=== PATIENT | female | born 1950 | race Caucasian/White ===

== ENCOUNTER → 2016-12-04 | Outpatient (CLI) | payer MEDICARE, OTHER ==
[2016-12-04 17:22] LABS: Basophils % (A) 0 %; CH 30.4; CHCM 32.1; Eosinophils # (A) 0.2 k/uL (0-0.7); Eosinophils % (A) 3 %; HCT 39.1 % (34.0-46.0); HDW 2.33; HGB 12.7 gm/dL (11.4-16.0); Luc # (Auto) 0.12; Luc % (Auto) 2; Lymphocytes # (A) 1.3 k/uL (1.0-4.8); Lymphocytes % (A) 26 %; MCH 30.9 pg (25.0-35.0); MCHC 32.4 g/dL (31.0-37.0); MCV 95.3 fL (80.0-100.0); Monocytes # (A) 0.5 k/uL (0-1.0); Monocytes % (A) 9 %; Neutrophils # (A) 3.1 k/uL (1.3-7.7); Neutrophils % (A) 60 %; RBC 4.11 m/uL (3.80-5.40); RDW 13.2 % (11.5-15.5); WBC 5.2 k/uL (3.8-10.6); WBC (Perox) 5.79
[2016-12-04 17:49] LABS: Bilirubin, Delta 0.2 mg/dL (0.0-0.2); Total Bilirubin 0.4 mg/dL (0.2-1.3)
[2016-12-04 17:50] LABS: Hemoglobin A1C 5.9 % (4.2-6.1)
== END ==
LOC: LABWHC1 17:07
PROVIDERS: ATTEND Psychiatry & Neurology Psychiatry
DX: F71 Moderate intellectual disabilities (principal); F84.0 Autistic disorder
CPT/HCPCS: 36415; 80076; 82607; 82746; 83036; 84443; 85025

== ENCOUNTER → 2017-02-15 | Outpatient (CLI) | payer MEDICARE, OTHER ==
[2017-02-15 17:11] LABS: Basophils % (A) 0 %; CH 29.9; CHCM 32.2; Eosinophils # (A) 0.1 k/uL (0-0.7); Eosinophils % (A) 2 %; HCT 38.6 % (34.0-46.0); HDW 2.49; HGB 13.2 gm/dL (11.4-16.0); Luc # (Auto) 0.14; Luc % (Auto) 2; Lymphocytes # (A) 1.9 k/uL (1.0-4.8); Lymphocytes % (A) 34 %; MCH 31.8 pg (25.0-35.0); MCHC 34.1 g/dL (31.0-37.0); MCV 93.1 fL (80.0-100.0); Monocytes # (A) 0.5 k/uL (0-1.0); Monocytes % (A) 8 %; Neutrophils # (A) 3.1 k/uL (1.3-7.7); Neutrophils % (A) 54 %; RBC 4.14 m/uL (3.80-5.40); RDW 13.3 % (11.5-15.5); WBC 5.7 k/uL (3.8-10.6); WBC (Perox) 6.06
[2017-02-15 17:44] LABS: Bilirubin, Delta 0.1 mg/dL (0.0-0.2); Total Bilirubin 0.3 mg/dL (0.2-1.3); Total Protein 6.8 g/dL (6.3-8.2)
[2017-02-15 22:14] LABS: Hemoglobin A1C 5.7 % (4.2-6.1)
== END | disposition home or self-care (01) ==
LOC: LABWHC1 16:38
PROVIDERS: ATTEND Psychiatry & Neurology Psychiatry
DX: G40.909 Epilepsy, unspecified, not intractable, without status epilepticus (principal); T50.905A Adverse effect of unspecified drugs, medicaments and biological substances, initial encounter
CPT/HCPCS: 36415; 80076; 80164; 82607; 82746; 83036; 84443; 85025

== ENCOUNTER → 2018-02-17 | Outpatient (CLI) | payer MEDICARE, OTHER ==
[2018-02-17 16:48] LABS: Basophils % (A) 0 %; Eosinophils # (A) 0.1 k/uL (0-0.7); Eosinophils % (A) 2 %; HGB 12.8 gm/dL (11.4-16.0); Lymphocytes # (A) 1.9 k/uL (1.0-4.8); Lymphocytes % (A) 36 %; MCH 30.6 pg (25.0-35.0); MCHC 32.7 g/dL (31.0-37.0); MCV 93.5 fL (80.0-100.0); Mean Platelet Volume 7.1; Monocytes # (A) 0.5 k/uL (0-1.0); Monocytes % (A) 9 %; Neutrophils # (A) 2.7 k/uL (1.3-7.7); Neutrophils % (A) 51 %; Platelet Count 149 k/uL (150-450); RBC 4.17 m/uL (3.80-5.40); RDW 13.7 % (11.5-15.5); WBC 5.2 k/uL (3.8-10.6)
[2018-02-17 17:07] LABS: Albumin 3.9 g/dL (3.5-5.0); Bilirubin, Delta 0.2 mg/dL (0.0-0.2); Potassium 4.4 mmol/L (3.5-5.1); Total Bilirubin 0.2 mg/dL (0.2-1.3); Total Protein 6.6 g/dL (6.3-8.2)
[2018-02-17 17:12] LABS: Valproic Acid (Depakene) 62.6 ug/mL
[2018-02-18 02:13] LABS: Hemoglobin A1C 5.9 % (4.0-6.0)
== END | disposition home or self-care (01) ==
LOC: LABWHC1 16:16
PROVIDERS: ATTEND Psychiatry & Neurology Psychiatry
DX: Z51.81 Encounter for therapeutic drug level monitoring (principal); Z79.899 Other long term (current) drug therapy
CPT/HCPCS: 36415; 80051; 80076; 80164; 83036; 84443; 85025

== ENCOUNTER 2018-10-18 12:19 | Emergency (ER) | payer MEDICARE, OTHER ==
[2018-10-18 12:28] VITALS: RESP 18
[2018-10-18] MEDS ORDERED: SODIUM CHLORIDE 0.9% 1,000 ML IV STA (13:10)
--- NOTE | 2018-10-18 13:36 | ED ---
General Adult HPI - General Chief complaint: Recheck/Abnormal Lab/Rx Stated complaint: Weakness/bleeding Time Seen by Provider: 10/18/18 12:55 Source: patient, RN notes reviewed Mode of arrival: ambulatory Limitations: no limitations - History of Present Illness Initial comments: 67-year-old female presents emergency department for evaluation of fatigue. Patient has flulike symptoms include that she does have influenza. She has had a cough, runny nose and suspected fever. Patient denies any chest pain or shortness of breath. Denies any headache or dizziness. There also states that she had an episode of blood in her brief those mixed with urine. Denies any vaginal bleeding or rectal bleeding Patient symptoms happened over the weekend and I did contact PCP and which she'll follow-up appointment. Patient had no recurrent episodes denies any diarrhea or constipation. Patient is her normal baseline in which she does have underlying developmental delay - Related Data Home Medications Medication Instructions Recorded Confirmed FLUoxetine HCL [PROzac] 20 mg PO QAM 01/28/14 10/18/18 Furosemide [Lasix] 20 mg PO DAILY PRN 01/28/14 10/18/18 Alendronate Sodium [Fosamax] 70 mg PO Q7D 08/26/15 10/18/18 Mirabegron [Myrbetriq] 50 mg PO QAM 08/26/15 10/18/18 Divalproex [Depakote] 500 mg PO BID 09/04/15 10/18/18 Atorvastatin [Lipitor] 40 mg PO HS 10/14/15 10/18/18 Aspirin 325 mg PO DAILY 10/18/18 10/18/18 Ergocalciferol [Vitamin D2] 50,000 unit PO Q7D 10/18/18 10/18/18 Lisinopril [Zestril] 10 mg PO DAILY 10/18/18 10/18/18 Montelukast Sodium [Singulair] 10 mg PO HS 10/18/18 10/18/18 Vitafusion Fiber 5 mg PO DAILY 10/18/18 10/18/18 Previous Rx's Medication Instructions Recorded Cephalexin [Keflex] 500 mg PO Q8HR #21 cap 10/18/18 Allergies Allergy/AdvReac Type Severity Reaction Status Date / Time No Known Allergies Allergy Verified 10/18/18 13:28 Review of Systems ROS Statement: Those systems with pertinent positive or pertinent negative responses have been documented in the HPI. ROS Other: All systems not noted in ROS Statement are negative. Past Medical History Past Medical History: CVA/TIA, GERD/Reflux, Seizure Disorder Additional Past Medical History / Comment(s): RECENT ABD PAIN (CT ATTEMPTED, BUT PATIENT WOULD NOT DRINK CONTRAST). MENTALLY DELAYED, DOES NOT COMPREHEND ALTHOUGH SHE ACKNOWLEDGES (PER CAREGIVER). Fluid on the brain in 2007. "Staring seizures". Insomnia, Osteoporosis. INCONTINENT (USES DEPENDS). History of Any Multi-Drug Resistant Organisms: None Reported Past Surgical History: Cholecystectomy Past Anesthesia/Blood Transfusion Reactions: No Reported Reaction Additional Past Anesthesia/Blood Transfusion Reaction / Comment(s): HAS NEVER HAD SURGERY. Past Psychological History: No Psychological Hx Reported Smoking Status: Unknown if ever smoked Past Alcohol Use History: None Reported Past Drug Use History: None Reported - Past Family History Father Family Medical History: Unable to Obtain Mother Family Medical History: Unable to Obtain General Exam Limitations: no limitations General appearance: alert, in no apparent distress Head exam: Present: atraumatic, normocephalic, normal inspection Eye exam: Present: normal appearance, PERRL, EOMI. Absent: scleral icterus, conjunctival injection, periorbital swelling ENT exam: Present: normal exam, normal oropharynx, mucous membranes moist Neck exam: Present: normal inspection. Absent: tenderness, meningismus, lymphadenopathy Respiratory exam: Present: normal lung sounds bilaterally. Absent: respiratory distress, wheezes, rales, rhonchi, stridor Cardiovascular Exam: Present: regular rate, normal rhythm, normal heart sounds. Absent: systolic murmur, diastolic murmur, rubs, gallop, clicks GI/Abdominal exam: Present: soft, normal bowel sounds. Absent: distended, tenderness, guarding, rebound, rigid Neurological exam: Present: alert, CN II-XII intact Skin exam: Present: warm, dry, intact, normal color. Absent: rash Course Vital Signs 10/18/18 12:25 Temperature 98 F Pulse Rate 104 H Respiratory 18 Rate Blood Pressure 154/91 O2 Sat by Pulse 98 Oximetry Medical Decision Making - Medical Decision Making 67-year-old female present for possible influenza, episode of blood in her brief. Patient does have evidence of nitrite positive, hematuria, weight cells in her urine though very minimal. Patient generally culture will be placed on antibiotics. Patient is out of range for Tamiflu. Patient chest x-ray is unremarkable. Patient is stable for discharge return parameters were discussed. - Lab Data Result diagrams: 10/18/18 14:10 10/18/18 14:10 Lab Results 10/18/18 10/18/18 10/18/18 Range/Units 14:10 14:10 14:10 WBC 5.3 (3.8-10.6) k/uL RBC 3.81 (3.80-5.40) m/uL Hgb 11.7 (11.4-16.0) gm/dL Hct 35.5 (34.0-46.0) % MCV 93.0 (80.0-100.0) fL MCH 30.7 (25.0-35.0) pg MCHC 32.9 (31.0-37.0) g/dL RDW 13.7 (11.5-15.5) % Plt Count 106 L (150-450) k/uL Neutrophils % 71 % Lymphocytes % 19 % Monocytes % 8 % Eosinophils % 0 % Basophils % 0 % Neutrophils # 3.8 (1.3-7.7) k/uL Lymphocytes # 1.0 (1.0-4.8) k/uL Monocytes # 0.5 (0-1.0) k/uL Eosinophils # 0.0 (0-0.7) k/uL Basophils # 0.0 (0-0.2) k/uL PT (9.0-12.0) sec INR (<1.2) APTT (22.0-30.0) sec Sodium 137 (137-145) mmol/L Potassium 4.0 (3.5-5.1) mmol/L Chloride 101 (98-107) mmol/L Carbon Dioxide 31 H (22-30) mmol/L Anion Gap 5 mmol/L BUN 25 H (7-17) mg/dL Creatinine 0.89 (0.52-1.04) mg/dL Est GFR (CKD-EPI)AfAm 78 (>60 ml/min/1.73 sqM) Est GFR (CKD-EPI)NonAf 67 (>60 ml/min/1.73 sqM) Glucose 127 H (74-99) mg/dL Plasma Lactic Acid Ojel 1.1 (0.7-2.0) mmol/L Calcium 9.2 (8.4-10.2) mg/dL Magnesium 1.7 (1.6-2.3) mg/dL Total Bilirubin 0.3 (0.2-1.3) mg/dL AST 24 (14-36) U/L ALT 28 (9-52) U/L Alkaline Phosphatase 61 (38-126) U/L Total Protein 5.9 L (6.3-8.2) g/dL Albumin 3.2 L (3.5-5.0) g/dL Urine Color Urine Appearance (Clear) Urine pH (5.0-8.0) Ur Specific [place] (1.001-1.035) Urine Protein (Negative) Urine Glucose (UA) (Negative) Urine Ketones (Negative) Urine Blood (Negative) Urine Nitrite (Negative) Urine Bilirubin (Negative) Urine Urobilinogen (<2.0) mg/dL Ur Leukocyte Esterase (Negative) Urine RBC (0-5) /hpf Ur Squamous Epith Cells (0-4) /hpf Urine Bacteria (None) /hpf Hyaline Casts (0-2) /lpf Urine Mucus (None) /hpf Influenza Type A RNA (Not Detectd) Influenza Type B (PCR) (Not Detectd) 10/18/18 10/18/18 10/18/18 Range/Units 14:10 14:10 15:21 WBC (3.8-10.6) k/uL RBC (3.80-5.40) m/uL Hgb (11.4-16.0) gm/dL Hct (34.0-46.0) % MCV (80.0-100.0) fL MCH (25.0-35.0) pg MCHC (31.0-37.0) g/dL RDW (11.5-15.5) % Plt Count (150-450) k/uL Neutrophils % % Lymphocytes % % Monocytes % % Eosinophils % % Basophils % % Neutrophils # (1.3-7.7) k/uL Lymphocytes # (1.0-4.8) k/uL Monocytes # (0-1.0) k/uL Eosinophils # (0-0.7) k/uL Basophils # (0-0.2) k/uL PT 10.7 (9.0-12.0) sec INR 1.0 (<1.2) APTT 30.2 H (22.0-30.0) sec Sodium (137-145) mmol/L Potassium (3.5-5.1) mmol/L Chloride (98-107) mmol/L Carbon Dioxide (22-30) mmol/L Anion Gap mmol/L BUN (7-17) mg/dL Creatinine (0.52-1.04) mg/dL Est GFR (CKD-EPI)AfAm (>60 ml/min/1.73 sqM) Est GFR (CKD-EPI)NonAf (>60 ml/min/1.73 sqM) Glucose (74-99) mg/dL Plasma Lactic Acid Joel (0.7-2.0) mmol/L Calcium (8.4-10.2) mg/dL Magnesium (1.6-2.3) mg/dL Total Bilirubin (0.2-1.3) mg/dL AST (14-36) U/L ALT (9-52) U/L Alkaline Phosphatase (38-126) U/L Total Protein (6.3-8.2) g/dL Albumin (3.5-5.0) g/dL Urine Color Light Yellow Urine Appearance Clear (Clear) Urine pH 6.0 (5.0-8.0) Ur Specific [place] 1.008 (1.001-1.035) Urine Protein Negative (Negative) Urine Glucose (UA) Negative (Negative) Urine Ketones Negative (Negative) Urine Blood Negative (Negative) Urine Nitrite Positive H (Negative) Urine Bilirubin Negative (Negative) Urine Urobilinogen <2.0 (<2.0) mg/dL Ur Leukocyte Esterase Large H (Negative) Urine RBC 1 (0-5) /hpf Ur Squamous Epith Cells <1 (0-4) /hpf Urine Bacteria Many H (None) /hpf Hyaline Casts 1 (0-2) /lpf Urine Mucus Rare H (None) /hpf Influenza Type A RNA Detected H (Not Detectd) Influenza Type B (PCR) Not Detected (Not Detectd) Disposition Clinical Impression: Influenza, UTI (urinary tract infection) Disposition: HOME SELF-CARE Condition: Stable Instructions (If sedation given, give patient instructions): Influenza (ED) Additional Instructions: Please return to the Emergency Department if symptoms worsen or any other concerns. Prescriptions: Cephalexin [Keflex] 500 mg PO Q8HR #21 cap Is patient prescribed a controlled substance at d/c from ED?: No Referrals: Nnamdi Toney DO [Primary Care Provider] - 1-2 days Time of Disposition: 15:54
--- NOTE | 2018-10-18 14:03 | XR ---
EXAMINATION TYPE: XR chest 2V DATE OF EXAM: 10/18/2018 COMPARISON: Prior chest x-ray 09/04/2015 HISTORY: Fever and cough TECHNIQUE: Frontal and lateral views of the chest are obtained. FINDINGS: Lung volumes are low. Patchy basilar atelectasis is noted. There is no focal air space [place], pleural effusion, or pneumothorax seen. The cardiac silhouette size is stable. The osseous s tructures are intact. Atheromatous changes are noted within the aorta. IMPRESSION: Correlate for basilar atelectasis versus pneumonia. Follow-up suggested.
[2018-10-18 14:31] LABS: Basophils % (A) 0 %; Eosinophils % (A) 0 %; HCT 35.5 % (34.0-46.0); HGB 11.7 gm/dL (11.4-16.0); Lymphocytes % (A) 19 %; MCH 30.7 pg (25.0-35.0); MCHC 32.9 g/dL (31.0-37.0); Mean Platelet Volume 7.9; Monocytes # (A) 0.5 k/uL (0-1.0); Monocytes % (A) 8 %; Neutrophils # (A) 3.8 k/uL (1.3-7.7); Neutrophils % (A) 71 %; Platelet Count 106 k/uL (150-450); RBC 3.81 m/uL (3.80-5.40); RDW 13.7 % (11.5-15.5); WBC 5.3 k/uL (3.8-10.6)
[2018-10-18 14:35] LABS: Albumin 3.2 g/dL (3.5-5.0); Calcium 9.2 mg/dL (8.4-10.2); Magnesium 1.7 mg/dL (1.6-2.3); Partial Thromboplastin Time 30.2 sec (22.0-30.0); Prothrombin Time 10.7 sec (9.0-12.0); Total Bilirubin 0.3 mg/dL (0.2-1.3); Total Protein 5.9 g/dL (6.3-8.2)
[2018-10-18 15:40] LABS: Appearance,Urine Clear (Clear); Bacteria,Urine Many /hpf; Bilirubin,Urine Negative (Negative); Blood,Urine Negative (Negative); Color,Urine Light Yellow; Glucose,Urine (UA) Negative (Negative); Hyaline Casts,Urine 1 /lpf (0-2); Ketones,Urine Negative (Negative); Leukocyte Esterase,Urine Large (Negative); Mucus,Urine Rare /hpf; Nitrite,Urine Positive (Negative); Protein,Urine Negative (Negative); RBC,Urine 1 /hpf (0-5); Specific Gravity,Urine 1.008 (1.001-1.035); Squamous Epithelial Cell,Urine <1 /hpf (0-4); Urobilinogen,Urine <2.0 mg/dL (<2.0)
[2018-10-18 16:08] VITALS: BP 130/73; PULSE 94; TEMP 98.7
== END 2018-10-18 16:07 | disposition home or self-care (01) ==
LOC: EC 12:19
DX: J10.1 Influenza due to other identified influenza virus with other respiratory manifestations (principal); N39.0 Urinary tract infection, site not specified; G40.909 Epilepsy, unspecified, not intractable, without status epilepticus; Z86.73 Personal history of transient ischemic attack (TIA), and cerebral infarction without residual deficits; Z79.82 Long term (current) use of aspirin; Z79.899 Other long term (current) drug therapy
CPT/HCPCS: 36415; 71046; 80053; 81001; 83605; 83735; 85025; 85610; 85730; 87086; 87502; 96360; 96361; 99284

== ENCOUNTER 2019-04-29 08:37 | Outpatient (CLI) | payer MEDICARE, OTHER | END 2019-04-29 10:24 | disposition home or self-care (01) | LOC: LABWHC1 08:37 | PROVIDERS: ATTEND Psychiatry & Neurology Psychiatry | DX: Z53.9 Procedure and treatment not carried out, unspecified reason (principal) ==

== ENCOUNTER → 2019-06-08 | Outpatient (CLI) | payer MEDICARE, OTHER ==
--- NOTE | 2019-06-08 23:01 | CONS ---
CONSULTATION DATE OF SERVICE: 06/08/2019 This patient is a 68-year-old lady who has been evaluated in the sleep center for possible obstructive sleep apnea-hypopnea syndrome. HISTORY OF PRESENT ILLNESS/SLEEP-WAKE EVALUATION: Patient's sleep schedule on weekdays is usually from around 8 p.m. until 6 a.m.; on weekends from around 8 p.m. until 7:30 a.m. Usually no problems with falling asleep. No TV in bedroom. She sleeps on the back position. She snores and she has episodes of nocturia 2 times at night. No history of hypnagogic hallucinations, sleep paralysis or cataplexy. In the morning the patient wakes up tired, has difficulties paying attention, has problems with memory and concentration. [place] Sleepiness Scale is 3. Usually she does not take any naps during the day. History was taken with the help of caregiver. PAST MEDICAL HISTORY: Past medical history is positive for: 1. Hypertension. 2. Hyperlipidemia. 3. Obsessive-compulsive disorder. 4. History of bowel incontinence. MEDICATIONS: 1. Furosemide. 2. Robitussin. 3. Alendronate. 4. Fluoxetine. 5. Divalproex. 6. Atorvastatin. 7. Lisinopril. 8. Aspirin. 9. Montelukast. SOCIAL HISTORY: Negative for smoking or using alcohol. PAST SURGICAL HISTORY: None. FAMILY HISTORY: Heart problems. REVIEW OF SYSTEMS: Awakenings from sleep, mood problems, swelling of the legs. PHYSICAL EXAMINATION: GENERAL: A pleasant lady without distress. VITAL SIGNS: BP 123/79, HR 88, RR 14, height 5 feet 4-1/2 inches, weight 164.4, temperature 98.6, oxygen saturation on room air 92%, body mass index 27.7. HEENT: PERRLA, EOMI. Evaluation of oropharynx showed tongue protrudes midline. Extremely low position of soft palate. Significant retrognathia, about 7 mm. NECK: Supple. No JVD. Thyroid is not palpable. Neck measures 14-1/2 inches in circumference. LUNGS: Clear to percussion and to auscultation. Good air exchange. No wheezing or rhonchi. HEART: S1, S2 regular. No murmurs, gallops or rubs. ABDOMEN: Soft and nontender. Bowel sounds are present. No organomegaly. EXTREMITIES: No clubbing or cyanosis. LITHOGRAPHIC STRIPPER: Awake, alert, and oriented X3. Cranial nerves 2 to 7 intact. There is no fasciculation or atrophy. noted. No focal deficits observed. Tremor. Finger-nose probe for Parkinson's disease is negative. IMPRESSION: 1. Snoring, extremely low position of soft palate, nocturia, significant retrognathia, about 7 mm; obstructive sleep apnea-hypopnea syndrome. 2. History of obsessive-compulsive disorder. 3. Forgetfulness. 4. Hypertension. 5. Hyperlipidemia. 6. History of bowel incontinence. 7. Tremor, most probably benign. PLAN: 1. Polysomnography for evaluation of patient's breathing during sleep. 2. CPAP/BiPAP titration if sleep study confirms obstructive sleep apnea-hypopnea syndrome. 3. Preferable position during sleep on the side. 4. No driving if patient feels any sleepiness. 5. I will see patient for follow up visit to explain results of testing and following plan. Thank you very much for referring this patient for consultation. Sincerely, Shaun Alberts MD, PhD, FAASM Diplomat of [place] [employer] [place] [employer] Atm Technician of [facility] [place] MMODL / IJN: [id number] /
== END ==
LOC: SLEEP 16:33
PROVIDERS: ATTEND Internal Medicine
DX: G47.33 Obstructive sleep apnea (adult) (pediatric) (principal); I10 Essential (primary) hypertension; E78.5 Hyperlipidemia, unspecified; R25.1 Tremor, unspecified; Z79.899 Other long term (current) drug therapy; Z87.19 Personal history of other diseases of the digestive system; Z79.82 Long term (current) use of aspirin

== ENCOUNTER → 2019-09-02 | Outpatient (CLI) | payer MEDICARE, OTHER ==
[2019-09-02 16:43] LABS: Valproic Acid (Depakene) 78.5 ug/mL (50.0-100.0)
[2019-09-02 17:25] LABS: ALT 13 U/L (8-44); AST 19 U/L (13-35); Albumin/Globulin Ratio 1.95 (1.60-3.17); Alkaline Phosphatase 77 U/L (41-126); Bilirubin, Conjugated <0.20 mg/dL (0.20-0.40); Chol/HDL Ratio 2.09; Cholesterol 121 mg/dL (0-200); Globulin 2.1 g/dL (1.6-3.3); Glucose 102 mg/dL (70-110); LDL Cholesterol,Calculated 51.4 mg/dL (0.0-131.0); Total Bilirubin 0.3 mg/dL (0.3-1.2); Total Protein 6.2 g/dL (6.2-8.2)
== END | disposition home or self-care (01) ==
LOC: EEVIPCON 08:48 → LABWHC1 08:48
PROVIDERS: ATTEND Psychiatry & Neurology Psychiatry
DX: F71 Moderate intellectual disabilities (principal); F84.0 Autistic disorder; T50.905A Adverse effect of unspecified drugs, medicaments and biological substances, initial encounter; Z79.899 Other long term (current) drug therapy
CPT/HCPCS: 36415; 80061; 80076; 80164; 82947; 83036

== ENCOUNTER → 2020-07-26 | Outpatient (CLI) | payer MEDICARE, OTHER | END | disposition home or self-care (01) | LOC: LABWHC1 09:12 | PROVIDERS: ATTEND Psychiatry & Neurology Neurology | DX: G40.009 Localization-related (focal) (partial) idiopathic epilepsy and epileptic syndromes with seizures of localized onset, not intractable, without status epilepticus (principal) | CPT/HCPCS: 36415; 80164 ==

== ENCOUNTER → 2021-06-13 | Outpatient (CLI) | payer MEDICARE, OTHER | END | disposition home or self-care (01) | LOC: LABWHC1 11:04 | PROVIDERS: ATTEND Psychiatry & Neurology Psychiatry | DX: Z79.899 Other long term (current) drug therapy (principal) | CPT/HCPCS: 36415; 80164 ==

== ENCOUNTER 2025-02-14 14:13 | Observation (INO) | payer MEDICARE, OTHER ==
--- NOTE | 2025-02-14 15:08 | ED ---
Recheck HPI - General Chief Complaint: Recheck/Abnormal Lab/Rx Stated Complaint: Peg 2 issues Time Seen by Provider: 02/14/25 15:03 Source: patient, EMS, RN notes reviewed Mode of arrival: EMS Limitations: language barrier - History of Present Illness Initial Comments: 74 year old female sent from [facility] home for clogged PEG tube. Patient is nonverbal at baseline. Patient originally had a 20 Bulgarian PEG tube however it was replaced 2 weeks ago with a 16 Bulgarian. States they are having issues with the PEG tube becoming clogged and are requesting a larger PEG tube such as an 18 Bulgarian or 20 Bulgarian. - Related Data Home Medications Medication Instructions Recorded Confirmed FLUoxetine HCL [PROzac] 20 mg PO QAM 01/28/14 10/18/18 Furosemide [Lasix] 20 mg PO DAILY PRN 01/28/14 10/18/18 Alendronate Sodium [Fosamax] 70 mg PO Q7D 08/26/15 10/18/18 Mirabegron [Myrbetriq] 50 mg PO QAM 08/26/15 10/18/18 Divalproex [Depakote] 500 mg PO BID 09/04/15 10/18/18 Atorvastatin [Lipitor] 40 mg PO HS 10/14/15 10/18/18 Aspirin 325 mg PO DAILY 10/18/18 10/18/18 Ergocalciferol [Vitamin D2] 50,000 unit PO Q7D 10/18/18 10/18/18 Montelukast Sodium [Singulair] 10 mg PO HS 10/18/18 10/18/18 Vitafusion Fiber 5 mg PO DAILY 10/18/18 10/18/18 lisinopriL [Zestril] 10 mg PO DAILY 10/18/18 10/18/18 Previous Rx's Medication Instructions Recorded Cephalexin [Keflex] 500 mg PO Q8HR #21 cap 10/18/18 Allergies Allergy/AdvReac Type Severity Reaction Status Date / Time No Known Allergies Allergy Verified 02/14/25 14:21 Review of Systems ROS Statement: Those systems with pertinent positive or pertinent negative responses have been documented in the HPI. ROS Other: All systems not noted in ROS Statement are negative. Past Medical History Past Medical History: CVA/TIA, GERD/Reflux, Seizure Disorder Additional Past Medical History / Comment(s): RECENT ABD PAIN (CT ATTEMPTED, BUT PATIENT WOULD NOT DRINK CONTRAST). MENTALLY DELAYED, DOES NOT COMPREHEND ALTHOUGH SHE ACKNOWLEDGES (PER CAREGIVER). Fluid on the brain in 2006. "Staring seizures". Insomnia, Osteoporosis. INCONTINENT (USES DEPENDS). History of Any Multi-Drug Resistant Organisms: ESBL Date of last positivie culture/infection: 10/18/18 MDRO Source:: ESBL URINE Past Surgical History: Cholecystectomy Past Anesthesia/Blood Transfusion Reactions: No Reported Reaction Additional Past Anesthesia/Blood Transfusion Reaction / Comment(s): HAS NEVER HAD SURGERY. Past Psychological History: No Psychological Hx Reported Past Alcohol Use History: None Reported Past Drug Use History: None Reported - Past Family History Father Family Medical History: Unable to Obtain Mother Family Medical History: Unable to Obtain General Exam Limitations: language barrier General appearance: alert, in no apparent distress Head exam: Present: atraumatic, normocephalic, normal inspection GI/Abdominal exam: Present: soft, normal bowel sounds, other (peg tube in place). Absent: distended, tenderness, guarding, rebound, rigid Neurological exam: Present: alert Skin exam: Present: warm, dry, intact, normal color. Absent: rash Course Vital Signs 02/14/25 02/14/25 02/14/25 14:16 14:22 15:11 Temperature 97.9 F 98.1 F Pulse Rate 70 71 Respiratory 22 13 Rate Blood Pressure 116/64 114/59 O2 Sat by Pulse 97 Oximetry 02/14/25 17:06 Temperature 97.9 F Pulse Rate 74 Respiratory 22 Rate Blood Pressure 114/56 O2 Sat by Pulse 95 Oximetry Medical Decision Making - Medical Decision Making Was pt. sent in by a medical professional or institution (, PA, SENIOR AUDIT MANAGER, urgent care, hospital, or half-way...) When possible be specific @ -No Did you speak to anyone other than the patient for history (EMS, parent, family, police, friend...)? What history was obtained from this source @ -No Did you review nursing and triage notes (agree or disagree)? Why? @ -I reviewed and agree with nursing and triage notes Were old charts reviewed (outside hosp., previous admission, EMS record, old EKG, old radiological studies, urgent care reports/EKG's, half-way records)? Report findings @ -Yes, EMS Differential Diagnosis (chest pain, altered mental status, abdominal pain women, abdominal pain men, vaginal bleeding, weakness, fever, dyspnea, syncope, headache, dizziness, GI bleed, back pain, seizure, CVA, palpatations, mental health, musculoskeletal)? @ -Not applicable EKG interpreted by me (3pts min.). @ -None X-rays interpreted by me (1pt min.). @ -None done CT interpreted by me (1pt min.). @ -None done U/S interpreted by me (1pt. min.). @ -None done What testing was considered but not performed or refused? (CT, X-rays, U/S, labs)? Why? @ -None What meds were considered but not given or refused? Why? @ -None Did you discuss the management of the patient with other professionals (professionals i.e. , PA, SENIOR AUDIT MANAGER, lab, RT, psych nurse, psychosocial rehabilitation counselor, nail making machine setter, teacher, job placement officer, cyanide case hardener)? Give summary @ -I spoke with Dr. Ferreira on-call general surgeon who requests patient is admitted to medicine with him on consult. I then spoke with Dr. Cavanaugh who is agreeable to this plan Was smoking cessation discussed for >3mins.? @ -No Was critical care preformed (if so, how long)? @ -No Were there social determinants of health that impacted care today? How? (Homelessness, low income, unemployed, alcoholism, drug addiction, transportation, low edu. Level, literacy, decrease access to med. care, [facility], rehab)? @ -No Was there de-escalation of care discussed even if they declined (Discuss DNR or withdrawal of care, Hospice)? DNR status @ -No What co-morbidities impacted this encounter? (DM, HTN, Smoking, COPD, CAD, Cancer, CVA, ARF, Chemo, Hep., AIDS, mental health diagnosis, sleep apnea, morbid obesity)? @ -None Was patient admitted / discharged? Hospital course, mention meds given and route, prescriptions, significant lab abnormalities, going to OR and other pertinent info. @ -Admitted. 74-year-old female presenting for clogged PEG tube. PEG tube was removed. Attempted to replace PEG tube with 20 Bulgarian and was unsuccessful due to size. Then attempted to replace PEG tube with an 18 Bulgarian and was still unsuccessful due to size. Finally attempted to replace with a 16 Bulgarian and was unsuccessful by myself and my ED attending Dr. Stewart. Patient will be admitted to medicine with surgical consult per Dr. Ferreira request. Case was discussed with my ED attending Dr. Stewart. Undiagnosed new problem with uncertain prognosis? @ -No Drug Therapy requiring intensive monitoring for toxicity (Heparin, Nitro, Insulin, Cardizem)? @ -No Were any procedures done? @ -No Diagnosis/symptom? @ -PEG tube issue Acute, or Chronic, or Acute on Chronic? @ -Acute Uncomplicated (without systemic symptoms) or Complicated (systemic symptoms)? @ -Uncomplicated Side effects of treatment? @ -No Exacerbation, Progression, or Severe Exacerbation? @ -No Poses a threat to life or bodily function? How? (Chest pain, [place], [place], pneumonia, PE, COPD, DKA, ARF, appy, cholecystitis, CVA, Diverticulitis, Homicidal, Suicidal, threat to staff... and all critical care pts) @ -Possibly Disposition Clinical Impression: PEG tube malfunction Disposition: ADMITTED IP TO THIS HOSP Time of Disposition: 17:13
[2025-02-14] MEDS ORDERED: ONDANSETRON 4 MG/2 ML VIAL IVP PRN (17:11)
[2025-02-14] MEDS ORDERED: NALOXONE 0.4 MG/ML 1 ML VIAL IV PRN (17:11)
[2025-02-14] MEDS ORDERED: ALBUTEROL NEBULIZED 2.5 MG/3 ML INHALATION PRN (20:39)
[2025-02-14] MEDS: PANTOPRAZOLE 40 MG/10 ML VIAL IVP SCH (21:54)
[2025-02-14] MEDS: cloNIDine 0.1 MG/24HR PATCH TRANSDERM STA (21:54)
[2025-02-14] MEDS: DIVALPROEX SPRINKLE 125 MG CAP.SPRINK PEG/G-TUBE SCH (22:18)
[2025-02-14] MEDS: PANTOPRAZOLE 40 MG TABLET PO SCH (22:18)
[2025-02-15] MEDS: VALPROATE SODIUM 250 MG in SODIUM CHLORIDE 0.9% 100 ML IVPB SCH (00:37)
--- NOTE | 2025-02-15 12:56 | XR ---
EXAMINATION TYPE: XR chest 2V DATE OF EXAM: 02/15/2025 12:40 PM COMPARISON: Chest radiographs from 10/18/2018 TECHNIQUE: XR chest 2V Frontal and lateral views of the chest. CLINICAL INDICATION:Female, 74 years old with history of peg tube in situ - new admit; FINDINGS: Lungs/Pleura: There is no evidence of pleural effusion, focal consolidation, or pneumothorax. Pulmonary vascularity: Unremarkable. Heart/mediastinum: Cardiomediastinal silhouette is unremarkable. Musculoskeletal: No acute osseous pathology. Other findings: Cholecystectomy clips in the right upper quadrant. IMPRESSION: No acute cardiopulmonary disease/process. [facility] Raphael Abrams, , 02/15/2025 12:54 PM
[2025-02-15] MEDS: IV FLUID CONTINUATION 1,000 ML IV ONE (14:53)
[2025-02-15] MEDS: IV FLUID CONTINUATION 500 ML IV ONE (14:53)
[2025-02-15] MEDS ORDERED: PROPOFOL 10 MG/ML 20 ML VIAL IV ONE (14:55)
[2025-02-15] MEDS ORDERED: LIDOCAINE 1% INJ 10MG/ML (20 ML MDV) ONE (14:55)
--- NOTE | 2025-02-15 15:12 | P.GSCN ---
History of Present Illness Consult date: 02/15/25 Reason for Consult: PEG tube malfunction History of present illness: 74-year-old female here for PEG tube replacement. Patient apparently had her tube fall out recently. It was replaced with a smaller catheter. They were having difficulties with the tube getting clogged. In the ER they were unable to place a new appropriately sized catheter. She was admitted for that reason. Patient with history of previous CVA. Patient is nonverbal. Past Medical History Past Medical History: CVA/TIA, GERD/Reflux, Hypertension, Neurologic Disorder, Seizure Disorder Additional Past Medical History / Comment(s): RECENT ABD PAIN (CT ATTEMPTED, BUT PATIENT WOULD NOT DRINK CONTRAST). MENTALLY DELAYED, DOES NOT COMPREHEND ALTHOUGH SHE ACKNOWLEDGES (PER CAREGIVER). Fluid on the brain in 2006. "Staring seizures". Insomnia, Osteoporosis. INCONTINENT (USES DEPENDS). Parkinsons disease History of Any Multi-Drug Resistant Organisms: ESBL Year Discovered:: 10/18/18 MDRO Source:: ESBL URINE Past Surgical History: Cholecystectomy Additional Past Surgical History / Comment(s): PEG tube Past Anesthesia/Blood Transfusion Reactions: No Reported Reaction Additional Past Anesthesia/Blood Transfusion Reaction / Comm: HAS NEVER HAD SURGERY. Past Psychological History: No Psychological Hx Reported Additional Psychological History / Comment(s): MENTALLY DELAYED. Pt speaks in very soft voice sometimes difficult to understand, pt was able to write her name when asked and read items off dietary menu, HOWEVER DOES NOT ALWAYS COMPREHEND INSTRUCTIONS. RESIDES AT [address] [address]. [phone]. HAS NO FAMILY. OTHER HX: CHILDHOOD PSYCHOSIS, BI-POLAR, ASBERGER. Smoking Status: Unknown if ever smoked Past Alcohol Use History: None Reported Past Drug Use History: None Reported - Past Family History Father Family Medical History: Unable to Obtain Mother Family Medical History: Unable to Obtain Medications and Allergies Home Medications Medication Instructions Recorded Confirmed Type FLUoxetine HCL [PROzac] 20 mg PEG/G-TUBE DAILY 01/28/14 02/14/25 History Montelukast Sodium [Singulair] 10 mg PEG/G-TUBE HS 10/18/18 02/14/25 History Albuterol Inhaler [Ventolin Hfa 2 puff INHALATION RT-Q6H PRN 02/14/25 02/14/25 History Inhaler] Aspirin EC [Ecotrin Low Dose] 81 mg PEG/G-TUBE DAILY 02/14/25 02/14/25 History Atorvastatin [Lipitor] 20 mg PEG/G-TUBE HS 02/14/25 02/14/25 History Carbidopa-Levodopa 25-100 mg 1 tab PEG/G-TUBE TID 02/14/25 02/14/25 History [Sinemet 25-100] Divalproex Sprinkle [Depakote 500 mg PEG/G-TUBE BID 02/14/25 02/14/25 History Sprinkle] Donepezil [Aricept] 10 mg PEG/G-TUBE HS 02/14/25 02/14/25 History FLUoxetine HCL [PROzac] 10 mg PEG/G-TUBE DAILY 02/14/25 02/14/25 History Ketoconazole 2% Shampoo [Nizoral] 10 - 15 ml TOPICAL DIRECTED 02/14/25 02/14/25 History Lactose-Reduced Food [Ensure Plus] 237 ml PEG/G-TUBE TID 02/14/25 02/14/25 History Loperamide [Imodium] 2 mg PEG/G-TUBE QID PRN 02/14/25 02/14/25 History Magic Cup 1 can PO TID 02/14/25 02/14/25 History Metoprolol Tartrate [Lopressor] 25 mg PEG/G-TUBE BID 02/14/25 02/14/25 History Ondansetron [Zofran] 4 mg PEG/G-TUBE Q8HR PRN 02/14/25 02/14/25 History Pantoprazole [Protonix] 40 mg PEG/G-TUBE DAILY 02/14/25 02/14/25 History guaiFENesin SYRUP 100MG/5ML 200 mg PEG/G-TUBE Q4H PRN 02/14/25 02/14/25 History [Robitussin] Allergies Allergy/AdvReac Type Severity Reaction Status Date / Time No Known Allergies Allergy Verified 02/14/25 19:49 Surgical - Exam Vital Signs Temp Pulse Resp 97.9 F 70 22 02/14/25 14:16 02/14/25 14:16 02/14/25 14:16 Physical exam: General: Well-developed, well-nourished HEENT: Normocephalic, sclerae nonicteric Abdomen: Nontender, nondistended, PEG tube opening left upper quadrant Extremities: No edema Neuro: Alert and oriented Assessment and Plan (1) PEG tube malfunction Narrative/Plan: Will proceed with EGD and PEG tube replacement at this time Current Visit: Yes Status: Acute Code(s): K94.23 - GASTROSTOMY MALFUNCTION SNOMED Code(s): 893389134
--- NOTE | 2025-02-15 15:22 | P.PCN ---
Date of Procedure: 02/15/25 Procedure(s) Performed: PREOPERATIVE DIAGNOSIS: Malnutrition, dysphagia, PEG tube malfunction POSTOPERATIVE DIAGNOSIS: Same PROCEDURE: EGD with PEG tube placement SURGEON: Hanna EBL: Minimal ANESTHESIA: Sedation COMPLICATIONS: None OPERATIVE PROCEDURE: The patient was placed in the supine position on the en doscopy table. The patient was sedated per anesthesia that time. The Olympus gastroscope was inserted into the oropharynx and passed under direct visualization to the region of the duodenum. No obstruction was seen. The pylorus was widely patent. The stomach was carefully inspected. The stomach was fully insufflated with air. The abdominal wall was inspected. The patient had a small defect in the anterior aspect of the body of the stomach from the previous catheter placement. There was no catheter in place at this time. Initially I tried using a hemostat to see if we could dilate the tract. This was unsuccessful. For that reason a new kit was opened. We chose the same previous site. The light was seen shining through the abdominal wall in the left upper quadrant. This site was chosen for PEG tube placement. The area was prepped in the usual sterile fashion. This area was then localized with lidocaine. No air was evident when aspirating while advancing the localizing n eedle into the stomach until the stomach was reached. The Seldinger needle was advanced into the lumen of the stomach the wire was advanced. The wire was grasped with an endoscopic snare. The wire was pulled through the oropharynx. The catheter was then threaded over the guidewire and the guidewire and catheter were pulled anteriorly until the hub of the PEG tube catheter was seated against the anterior wall the stomach. The circular bolster was applied and tightened down. The endoscope was then readvanced into the stomach. There was no evidence of any bleeding and there was appropriate tightness on the bolster. The catheter was cut appropriately. The dual port feeding adapter was applied. DISPOSITION: Stable to recovery room
[2025-02-15 15:28] LABS: Basophils # (A) 0.02 X 10*3/uL (0.00-0.10); Basophils % (A) 0.2 %; Eosinophils # (A) 0.15 X 10*3/uL (0.04-0.35); Eosinophils % (A) 1.5 %; HCT 41.2 % (37.2-46.3); HGB 12.7 g/dL (12.0-15.0); Immature Grans, Automated 0.70 %; Lymphocytes # (A) 2.11 X 10*3/uL (0.90-5.00); Lymphocytes % (A) 20.9 %; MCH 28.7 pg (27.0-32.0); MCHC 30.8 g/dL (32.0-37.0); MCV 93.0 FL (80.0-97.0); Monocytes # (A) 0.80 X 10*3/uL (0.20-1.00); Monocytes % (A) 7.9 %; NRBC Per 100 WBC 0 X 10*3/uL (0.00-0.01); Neutrophils # (A) 6.95 X 10*3/uL (1.80-7.70); Neutrophils % (A) 68.8 %; Platelet Count 181 X 10*3/uL (140-440); RBC 4.43 X 10*6/uL (4.10-5.20); RDW 12.9 % (11.5-14.5); WBC 10.10 X 10*3/uL (4.50-10.00)
[2025-02-15 15:34] LABS: ALT 11 U/L (8-44); AST 15 U/L (13-35); Albumin 3.7 g/dL (3.8-4.9); Albumin/Globulin Ratio 1.85 Ratio (1.60-3.17); Alkaline Phosphatase 87 U/L (41-126); Anion Gap 7.80 mmol/L (4.00-12.00); BUN/Creat Ratio 18.00 Ratio (12.00-20.00); Blood Urea Nitrogen 16.2 mg/dL (9.0-27.0); Calcium 9.2 mg/dL (8.7-10.3); Carbon Dioxide 31.2 mmol/L (21.6-31.8); Chloride 102 mmol/L (96-109); Globulin 2.0 g/dL (1.6-3.3); Glucose 98 mg/dL (70-110); Potassium 4.6 mmol/L (3.5-5.5); Sodium 141 mmol/L (135-145); Total Protein 5.7 g/dL (6.2-8.2)
[2025-02-15 16:52] VITALS: RESP 16
--- NOTE | 2025-02-15 18:31 | P.HPIM ---
History of Present Illness Chief Complaint: PEG tube obstruction History of present illness: 74 yo female with a history of CVA, TIA, seizure disorder, hypertension and cognitive impairment, transferred from [facility] home with complaints of a blocked PG tube. Patient is non-verbal at baseline. It was reported by nursing staff from care facility that the patient's original PEG tube had fallen out and she had a temporary PEG tube placed as a result. In ER, patient laborary work reveals for wbc 10.10, Hg 12.7, Sodium 141, platelets 181, potassium 4.6. Patient transferred followed by medical team for chronic conditions. REVIEW OF SYSTEMS: As stated above in HPI. The rest of the 14-point review of systems is negative. PHYSICAL EXAMINATION: GENERAL: Patient is non verbal, not in acute distress HEENT: Pupils are round and equally reacting to light. EOMI. No scleral icterus. No conjunctival pallor. Normocephalic, atraumatic. CARDIOVASCULAR: S1 and S2 present. PULMONARY: exam limited, chest clear. ABDOMEN: PEG tube in place. no erythema, no discharge appreciated. EXTREMITIES: No cyanosis, clubbing, or pedal edema. SKIN: No rashes. Assessment and Plan #Seizure disorder - Switch IV Dapocone to Dapakene syrup through the PEG #History of CVA #History of TIA #Hypertension - Continue home medications. DVT ppx: SCD's GI ppx: protonix CODE STATUS:full Dictation was produced using [employer] dictation software. please excuse any gramm atical, word or spelling errors. Past Medical History Past Medical History: CVA/TIA, GERD/Reflux, Hypertension, Neurologic Disorder, Seizure Disorder Additional Past Medical History / Comment(s): RECENT ABD PAIN (CT ATTEMPTED, BUT PATIENT WOULD NOT DRINK CONTRAST). MENTALLY DELAYED, DOES NOT COMPREHEND ALTHOUGH SHE ACKNOWLEDGES (PER CAREGIVER). Fluid on the brain in 2006. "Staring seizures". Insomnia, Osteoporosis. INCONTINENT (USES DEPENDS). Parkinsons disease History of Any Multi-Drug Resistant Organisms: ESBL Date of last positivie culture/infection: 10/18/18 MDRO Source:: ESBL URINE Past Surgical History: Cholecystectomy Additional Past Surgical History / Comment(s): PEG tube Past Anesthesia/Blood Transfusion Reactions: No Reported Reaction Additional Past Anesthesia/Blood Transfusion Reaction / Comment(s): HAS NEVER HAD SURGERY. Past Psychological History: No Psychological Hx Reported Additional Psychological History / Comment(s): MENTALLY DELAYED. Pt speaks in very soft voice sometimes difficult to understand, pt was able to write her name when asked and read items off dietary menu, HOWEVER DOES NOT ALWAYS COMPREHEND INSTRUCTIONS. RESIDES AT [facility], [address] [place] [id number]. [phone]. HAS NO FAMILY. OTHER HX: CHILDHOOD PSYCHOSIS, BI-POLAR, ASBERGER. Smoking Status: Unknown if ever smoked Past Alcohol Use History: None Reported Past Drug Use History: None Reported - Past Family History Father Family Medical History: Unable to Obtain Mother Family Medical History: Unable to Obtain Medications and Allergies Home Medications Medication Instructions Recorded Confirmed Type FLUoxetine HCL [PROzac] 20 mg PEG/G-TUBE DAILY 01/28/14 02/14/25 History Montelukast Sodium [Singulair] 10 mg PEG/G-TUBE HS 10/18/18 02/14/25 History Albuterol Inhaler [Ventolin Hfa 2 puff INHALATION RT-Q6H PRN 02/14/25 02/14/25 History Inhaler] Aspirin EC [Ecotrin Low Dose] 81 mg PEG/G-TUBE DAILY 02/14/25 02/14/25 History Atorvastatin [Lipitor] 20 mg PEG/G-TUBE HS 02/14/25 02/14/25 History Carbidopa-Levodopa 25-100 mg 1 tab PEG/G-TUBE TID 02/14/25 02/14/25 History [Sinemet 25-100] Divalproex Sprinkle [Depakote 500 mg PEG/G-TUBE BID 02/14/25 02/14/25 History Sprinkle] Donepezil [Aricept] 10 mg PEG/G-TUBE HS 02/14/25 02/14/25 History FLUoxetine HCL [PROzac] 10 mg PEG/G-TUBE DAILY 02/14/25 02/14/25 History Ketoconazole 2% Shampoo [Nizoral] 10 - 15 ml TOPICAL DIRECTED 02/14/25 02/14/25 History Lactose-Reduced Food [Ensure Plus] 237 ml PEG/G-TUBE TID 02/14/25 02/14/25 History Loperamide [Imodium] 2 mg PEG/G-TUBE QID PRN 02/14/25 02/14/25 History Magic Cup 1 can PO TID 02/14/25 02/14/25 History Metoprolol Tartrate [Lopressor] 25 mg PEG/G-TUBE BID 02/14/25 02/14/25 History Ondansetron [Zofran] 4 mg PEG/G-TUBE Q8HR PRN 02/14/25 02/14/25 History Pantoprazole [Protonix] 40 mg PEG/G-TUBE DAILY 02/14/25 02/14/25 History guaiFENesin SYRUP 100MG/5ML 200 mg PEG/G-TUBE Q4H PRN 02/14/25 02/14/25 History [Robitussin] Allergies Allergy/AdvReac Type Severity Reaction Status Date / Time No Known Allergies Allergy Verified 02/14/25 19:49 Physical Exam Vitals: Vital Signs Temp Pulse Resp BP BP Pulse Ox 02/15/25 16:31 80 16 164/76 91 L 02/15/25 16:16 83 17 152/80 92 L 02/15/25 16:02 81 17 150/79 92 L 02/15/25 15:46 98.6 F 77 16 176/79 92 L 02/15/25 14:33 97.4 F L 87 18 123/67 94 L 02/15/25 07:05 98.2 F 63 16 164/76 98 02/15/25 02:57 97.4 F L 72 18 146/68 97 02/14/25 19:52 97.7 F 75 16 161/74 95 Intake and Output 02/15/25 02/15/25 02/15/25 06:59 14:59 22:59 Intake Total 200 0 Output Total 700 400 Balance -700 -200 0 Intake: IV 200 Oral 0 0 Output: Urine 700 400 Other: Voiding Method External Catheter External Catheter Results CBC & Chem 7: 02/15/25 09:05 02/15/25 09:05 Labs: Abnormal Lab Results - Last 24 Hours (Table) 02/15/25 02/15/25 Range/Units 09:05 09:05 WBC 10.10 H (4.50-10.00) X 10*3/uL MCHC 30.8 L (32.0-37.0) g/dL Immature Gran # 0.07 H (0.00-0.04) X 10*3/uL Total Bilirubin <0.2 L (0.3-1.2) mg/dL Total Protein 5.7 L (6.2-8.2) g/dL Albumin 3.7 L (3.8-4.9) g/dL
[2025-02-15] MEDS: VALPROIC ACID ORAL SOLN 250 MG/5 ML CUP PEG/G-TUBE SCH (20:41)
--- NOTE | 2025-02-16 13:12 | P.PN ---
Subjective Progress Note Date: 02/16/25 Principal diagnosis: PEG tube malfunction Patient doing well today. Tolerating tube feeds. No obvious discomforts. Objective - Vital Signs Vital signs: Vital Signs Temp 99.1 F 02/16/25 07:20 Pulse 105 H 02/16/25 07:20 Resp 16 02/16/25 07:20 BP 153/69 02/16/25 07:20 Pulse Ox 94 L 02/16/25 07:20 FiO2 Intake & Output 02/15/25 02/16/25 02/16/25 18:59 06:59 18:59 Intake Total 200 Output Total 400 700 Balance -200 -700 Intake: IV 200 Oral 0 Output: Urine 400 700 Other: Voiding Method External Catheter Diaper Incontinent - Exam Abdomen: Soft, nondistended, PEG tube in place - Labs CBC & Chem 7: 02/15/25 09:05 02/15/25 09:05 Labs: Abnormal Lab Results - Last 24 Hours (Table) 02/15/25 02/15/25 Range/Units 09:05 09:05 WBC 10.10 H (4.50-10.00) X 10*3/uL MCHC 30.8 L (32.0-37.0) g/dL Immature Gran # 0.07 H (0.00-0.04) X 10*3/uL Total Bilirubin <0.2 L (0.3-1.2) mg/dL Total Protein 5.7 L (6.2-8.2) g/dL Albumin 3.7 L (3.8-4.9) g/dL Assessment and Plan (1) PEG tube malfunction Narrative/Plan: Patient doing well at this time. Resume normal tube feeds. Will sign off. Please reconsult if needed. Current Visit: Yes Status: Acute Code(s): K94.23 - GASTROSTOMY MALFUNCTION SNOMED Code(s): 746365116
--- NOTE | 2025-02-16 13:22 | P.DS ---
Providers Date of admission: 02/14/25 17:02 Attending physician: David Cavanaugh MD Consults: 02/14/25 17:11 Consult Physician Urgent Consulting Provider: Alec Ferreira Reason/Comments: needs PEG tube replacement Do you want consulting provider notified?: Yes Primary care physician: Nnamdi Toney [facility] Course: Discharge Diagnosis: Blocked PEG tube Hospital Course: 74 yo female with a history of CVA, TIA, seizure disorder, hypertension and cognitive impairment, transferred from [facility] home with complaints of a blocked PEG tube. Patient is non-verbal at baseline. It was reported by nursing staff from care facility that the patient's original PEG tube had fallen out and she had a temporary PEG tube placed as a result. In ER, patient's lab work reveals wbc 10.10, Hg 12.7, Sodium 141, platelets 181, potassium 4.6. Patient transferred to be followed by medical team for chronic conditions. During the course of hospital stay, patient evaluated by general surgery for PEG tube replacement. The patient's PEG replaced appropriately with no complications from surgery. Currently the PEG is functional and patient receiving medications/nutrients with no difficulty. Patient was previously on Depakote sprinkles however this is now changed to Depakene syrup as the previous formulation results in the clogging of her PEG. At time of discharge patient hemodynamically stable and fit for discharge to [facility] facility. Patient seen and examined at bedside: 02/16/2025 Vital signs reviewed and stable: PHYSICAL EXAMINATION: GENERAL: Patient is non verbal, not in acute distress HEENT: Pupils are round and equally reacting to light. EOMI. No scleral icterus. No conjunctival pallor. Normocephalic, atraumatic. CARDIOVASCULAR: S1 and S2 present. PULMONARY: exam limited, chest clear. ABDOMEN: PEG tube in place. no erythema, no discharge appreciated. EXTREMITIES: No cyanosis, clubbing, or pedal edema. SKIN: No rashes. A total of greater than 30 minutes were spent preparing this complex discarge summary. Patient was discharged on 02/16/2025. Plan - Discharge Summary New Discharge Prescriptions: New Valproic Acid Oral Soln [Depakene Syrup] 250 mg PEG/G-TUBE Q6H 30 Days #600 ml Continue FLUoxetine HCL [PROzac] 20 mg PEG/G-TUBE DAILY Montelukast Sodium [Singulair] 10 mg PEG/G-TUBE HS Ondansetron [Zofran] 4 mg PEG/G-TUBE Q8HR PRN PRN Reason: Nausea guaiFENesin SYRUP 100MG/5ML [Robitussin] 200 mg PEG/G-TUBE Q4H PRN PRN Reason: Cough Albuterol Inhaler [Ventolin Hfa Inhaler] 2 puff INHALATION RT-Q6H PRN PRN Reason: Shortness Of Breath Pantoprazole [Protonix] 40 mg PEG/G-TUBE DAILY Metoprolol Tartrate [Lopressor] 25 mg PEG/G-TUBE BID Ketoconazole 2% Shampoo [Nizoral] 10 - 15 ml TOPICAL DIRECTED FLUoxetine HCL [PROzac] 10 mg PEG/G-TUBE DAILY Lactose-Reduced Food [Ensure Plus] 237 ml PEG/G-TUBE TID Aspirin EC [Ecotrin Low Dose] 81 mg PEG/G-TUBE DAILY Loperamide [Imodium] 2 mg PEG/G-TUBE QID PRN PRN Reason: Diarrhea Magic Cup 1 can PO TID Atorvastatin [Lipitor] 20 mg PEG/G-TUBE HS Carbidopa-Levodopa 25-100 mg [Sinemet 25-100 mg] 1 tab PEG/G-TUBE TID Discontinued Donepezil [Aricept] 10 mg PEG/G-TUBE HS Divalproex Sprinkle [Depakote Sprinkle] 500 mg PEG/G-TUBE BID Discharge Medication List FLUoxetine HCL [PROzac] 20 mg PEG/G-TUBE DAILY 01/28/14 [History] Montelukast Sodium [Singulair] 10 mg PEG/G-TUBE HS 10/18/18 [History] Albuterol Inhaler [Ventolin Hfa Inhaler] 2 puff INHALATION RT-Q6H PRN 02/14/25 [History] Aspirin EC [Ecotrin Low Dose] 81 mg PEG/G-TUBE DAILY 02/14/25 [History] Atorvastatin [Lipitor] 20 mg PEG/G-TUBE HS 02/14/25 [History] Carbidopa-Levodopa 25-100 mg [Sinemet 25-100 mg] 1 tab PEG/G-TUBE TID 02/14/25 [History] FLUoxetine HCL [PROzac] 10 mg PEG/G-TUBE DAILY 02/14/25 [History] Ketoconazole 2% Shampoo [Nizoral] 10 - 15 ml TOPICAL DIRECTED 02/14/25 [History] Lactose-Reduced Food [Ensure Plus] 237 ml PEG/G-TUBE TID 02/14/25 [History] Loperamide [Imodium] 2 mg PEG/G-TUBE QID PRN 02/14/25 [History] Magic Cup 1 can PO TID 02/14/25 [History] Metoprolol Tartrate [Lopressor] 25 mg PEG/G-TUBE BID 02/14/25 [History] Ondansetron [Zofran] 4 mg PEG/G-TUBE Q8HR PRN 02/14/25 [History] Pantoprazole [Protonix] 40 mg PEG/G-TUBE DAILY 02/14/25 [History] guaiFENesin SYRUP 100MG/5ML [Robitussin] 200 mg PEG/G-TUBE Q4H PRN 02/14/25 [History] Valproic Acid Oral Soln [Depakene Syrup] 250 mg PEG/G-TUBE Q6H 30 Days #600 ml 02/16/25 [Rx] Follow up Appointment(s)/Referral(s): Nnamdi Toney DO [Primary Care Provider] - 1-2 days Patient Instructions/Handouts: How to Use and Care for Your PEG Tube (ED)
[2025-02-16 15:28] VITALS: BP 110/71; PULSE 61; TEMP 98.8
== END 2025-02-16 15:30 | disposition home or self-care (01) ==
LOC: EC 14:13 → 6NMEDSUR 17:02
PROVIDERS: ADMIT Internal Medicine; ATTEND Internal Medicine
DX: K94.23 Gastrostomy malfunction (principal); E46 Unspecified protein-calorie malnutrition; R13.10 Dysphagia, unspecified; G20.A1 Parkinson's disease without dyskinesia, without mention of fluctuations; G40.909 Epilepsy, unspecified, not intractable, without status epilepticus; I10 Essential (primary) hypertension; M81.0 Age-related osteoporosis without current pathological fracture; K21.9 Gastro-esophageal reflux disease without esophagitis; Z79.82 Long term (current) use of aspirin; Z79.83 Long term (current) use of bisphosphonates; Z79.899 Other long term (current) drug therapy; Z86.73 Personal history of transient ischemic attack (TIA), and cerebral infarction without residual deficits
CPT/HCPCS: 96376 ×2; 96365; 96366; 96375; 99284; 80053; 85025; 71046; 43246; G0378 ×3; J2003; J2704; J2470 ×3; B4087